=== PATIENT | male | born 1970 | race African-American/Black ===

== ENCOUNTER → 2017-08-24 | Outpatient (CLI) | payer OTHER | LOC: HRAD 07:07 | PROVIDERS: ATTEND Family Medicine | DX: M79.89 Other specified soft tissue disorders (principal) ==

== ENCOUNTER → 2017-08-27 | Outpatient (CLI) | payer OTHER ==
[~2017-08-27] MED LIST: GADODIAMIDE PF 287 MG/ML 5 ML VIAL (for RAD MRI) IV PUSH ONE
--- NOTE | 2017-08-27 21:38 | RADRPT ---
EXAM DATE/TIME: 08/27/2017 17:25 [place] COMPARISON: No previous studies available for comparison. INDICATIONS : Mass. Swelling of right fifth digit. CONTRAST: 18 cc Omniscan (gadodiamide) IV MEDICAL HISTORY : Hypertension. SURGICAL HISTORY : Superficial cyst removed from scalp. ENCOUNTER: Initial ACUITY: > 1 year PAIN SCORE: 3/10 LOCATION: Right hand, fifth digit. TECHNIQUE: Multiplanar, multisequence MRI examination was performed without contrast and after the intravenous a dministration of gadolinium. FINDINGS: Examination is abnormal demonstrating a lobular smooth margin enhancing soft tissue mass surrounding the flexor tendon of the 5th digit and measuring 2.6 cm in width and 2.5 cm in length. On the postco ntrast images, there is intense and uniform enhancement. No abnormal signal in the adjacent osseous structures, but there does appear to be flattening of the lateral cortex of the proximal phalanx of the 5th digit suggesting chronic pressure effects. No intr insic signal within the 5th digit flexor tendon. CONCLUSION: 2.6 cm enhancing mass surrounding the flexor tendon of the 5th digit at the level of the proximal pha lanx. There is some flattening of the cortex of the proximal phalanx, but no abnormal signal seen wi thin the marrow of the proximal phalanx. Richmond Conn MD on August 27, 2017 at 21:32 Board Certified Radiologist. This report was verified electronically.
== END ==
LOC: HRAD 16:02
PROVIDERS: ATTEND Family Medicine
DX: M79.89 Other specified soft tissue disorders (principal)
CPT/HCPCS: 73220; A9579

== ENCOUNTER → 2017-11-28 | Day surgery (SDC) | payer OTHER ==
[~2017-11-28] VITALS: Ht 167.6 cm; Wt 90.9 kg
[~2017-11-28] MED LIST changes: +BUPIVACAINE HCL PF 0.25% 30 ML VIAL ONE; +CEPH-460 PO; +CHLORHEXIDINE GLUCONATE 2 % 1 PACK (2 CLOTHS) TOPICAL PRN; +DEXAMETHASONE SOD PHOS 4 MG/ML VIAL IV ONE; -GADODIAMIDE PF 287 MG/ML 5 ML VIAL (for RAD MRI) IV PUSH ONE; +LACTATED RINGER'S 1000 ML IV PRN; +LIDOCAINE HCL 1% PF 30 ML VIAL ONE; +LIDOCAINE HCL 1% PF 5 ML SYRINGE OTHER ONE; +METOPROLOL TARTRATE 25 MG TAB PO PRN; +MIDAZOLAM HCL 2 MG/2 ML VIAL ONE; +NEOMYCIN/POLYMYXIN 1 ML G.U. IRRIGANT ONE; +ONDANSETRON HCL 4 MG/2 ML VIAL IV PUSH ONE; +PERC5TAB12 PO; +PHENYLEPH/NS 1000 MCG/10 ML SYR IV ONE; +POVIDONE IODINE 5% (ANTISEPSIS KIT) 4 APPLICATIONS EACH NARE PRN; +PROPOFOL 200 MG/20 ML AMP IV ONE; +SODIUM CHLORID 0.9% 500 ML IV PRN; +ceFAZolin 1,000 MG/NS 100 ML IV SCH; +ceFAZolin 2 GM PREMIX 50 ML ONE; +ePHEDrine/NS 25 MG/5 ML SYRINGE IV ONE
[2017-11-28 12:22] VITALS: PULSE 62
--- NOTE | 2017-11-28 13:25 | MP ---
cc: JARAD HAILE III, M.D. DATE OF SURGERY: 11/28/2017 PREOPERATIVE DIAGNOSIS Right fifth finger tumor. PROCEDURE Right fifth finger tumor resection/excisional biopsy with the 22 modifier. 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 Dr. Keen will dictate his case separately. PROCEDURE The patient was brought to the operating room and placed supine on the operating table. After the correct site and side of surgery were verified by members of each team in the room multiple times including the patient, myself and after adequate preoperative markings and preoperative written consent were verified by everyone and after adequate preoperative time-out was performed to everyone's satisfaction, after adequate general anesthesia had been achieved, the right upper extremity was prepped and draped in traditional sterile surgical fashion. 0.5% plain Marcaine was infiltrated in the skin and subcutaneous tissue proximally and dorsally and at the level of the palm to provide for a digital block. The limb was elevated and pressure was held on the brachial artery for 1 minute and then a highly placed well-padded axillary tourniquet was inflated to 200 mmHg for a total of 50 minutes. Krissy style incisions were made volarly as well as dorsally over the most prominent areas of the mass which was found to be multilobar and significantly scarred to the whole entire proximal phalanx. It involved the radial neurovascular bundle, the nerve which was identified __ the artery appeared to be sclerotic. Blunt and sharp dissection was used as needed. The mass was dissected away from the skin and then from the flexor tendon, it went deep to the flexor tendon between the tendon and the bone. The A2 jamil was mostly intact. Ulnarly, the neurovascular bundle was identified and found to be patent in continuity, the lobe of the mass was there and was dissected free from this, it still could not be mobilized. The hand was placed palm down and incision with angles overlying the greatest prominences of the mass was made. Blunt dissection was performed. The extensor tendon had been totally distorted ulnarly but was intact. Continued blunt and sharp dissection was performed meticulously until the entire mass came out of the hole. At this point the wound was examined and there were no other mass effect or remnants of the tumor that could be identified. The axillary tourniquet was released and then topical lidocaine was used over the neurovascular bundles, within a few minutes the finger became pink and warm with brisk capillary refill of less than 2 seconds. Hemostasis was present. Thorough irrigation with warm saline was performed for a liters worth and then the skin edges were reapproximated using interrupted and running 4-0 Nylon sutures. Tenodesis was performed and was normal passively. The hand and arm were thoroughly cleansed and dried. Bacitracin was applied to the wound followed by a bulky soft dressing. The patient was awakened from anesthesia and transported to the Post Anesthesia Care Unit awake and in stable condition at the end of the case. MD DOTTIE Phelan III/WAYLON /12:09 PM /12:57 PM
[2017-11-28 13:30] VITALS: BP 130/77; PULSE 66; RESP 14; TEMP 98; O2SAT 99
--- NOTE | 2017-11-28 17:04 | PD.OP ---
Operative Report Date of Surgery: Nov 28, 2017 Preoperative Diagnosis: (1) Finger mass, left Postoperative Diagnosis: (1) Finger mass, left Procedure: Excision of soft tissue subfascial tumor, 4.5 cm ([id number]) Anesthesia: Gen. Surgeon: Antwon Tsai Environmental Laboratory Technician(s): Jarad Haile MD Operation and Findings: This a 47-year-old male who presented with a left small finger base tumor. The patient desired excision. Risks benefits and alternative treatments were discussed. All questions were answered. Patient expressed understanding. The patient elected to assume the risks of operative excision of the above mass. Informed consent was obtained. The surgical site was marked in the preoperative holding bay. Antibiotics were given on-call to the operating room. The patient was taken to the operating room. All pressure points were padded. A surgical timeout was performed. After the smooth induction of general anesthesia, a digital block with 1% lidocaine plain was performed. The surgical site was prepped and draped in the usual sterile fashion. The right upper extremity was exsanguinated with digital pressure over the brachial artery and elevation for over 1 minute. The tourniquet was inflated to 200 mmHg. A Kasandra incision was made over the volar small finger. The mass was easily visualized with blunt dissection. The mass was multi-nodular and encompassed the entire proximal phalanx of the small finger. Blunt and sharp dissection was used to free the tumor. The tumor had distorted the neurovascular bundles, which were tented over the mass but between the lobes. This made dissection difficult. However, these were kept free from injury and eventually dissected free from the mass. The mass was found to extend around the flexor tendons circumferentially as well as abutting the bone. The flexor jamil A2 was kept intact. After extensive dissection, attention was then turned to the dorsum. A Kasandra incision was made over the dorsal mass were was most protuberant. Blunt dissections was used to separate the soft tissue from the mass. The extensor tendon was surrounded by the mass. The mass was meticulously dissected free from the extensor tendon, preserving peritenon. It was at this time that attention was again turned to the volar incision. Further blunt dissection was able to finally free the mass. The mass was sent for permanent pathology. The tourniquet was released. Total tourniquet time was 50 minutes. Hemostasis was ensured. The surgical site was copiously irrigated. The small finger was slow to reperfuse. This was felt to be vasospasm, as there were no signs of arterial injury. The finger was warmed using saline. One percent lidocaine plain was instilled around the neurovascular bundles. The finger tip slowly improving from a vasospasm, and at the end of the case had pinked up nicely with excellent cap refill throughout. Hemostasis was again ensured. The skin was closed with interrupted and running 4-0 nylon in a horizontal mattress fashion. The surgical site was cleaned. The incisions were dressed with bacitracin Xeroform gauze and dry gauze fluffs and Coban. All needle sponge and has been counts were correct 2. The patient was awoken from anesthesia and arrived stable and doing well to the PACU. Antwon Tsai MD Nov 28, 2017 17:04
== END | disposition home or self-care (01) ==
LOC: PHSDC 08:59
PROVIDERS: ATTEND Student in an Organized Health Care Education/Training Program
DX: D21.11 Benign neoplasm of connective and other soft tissue of right upper limb, including shoulder (principal)
CPT/HCPCS: 01810; 26113; 88307; 88341; 88342; J0690; J1100; J2250; J2370; J2405; J3010; J7120; 88305